=== PATIENT | male | born 1995 | race African-American/Black ===

== ENCOUNTER 2017-11-12 20:23 | Emergency (ER) | payer SELFPAY ==
[~2017-11-12] VITALS: Ht 180.3 cm; Wt 65.0 kg
[2017-11-12] MEDS ORDERED: PENICILLIN V POTASSIUM 500 MG TABLET PO ONE (21:30)
[2017-11-12] MEDS ORDERED: IBUPROFEN 600 MG TABLET PO ONE (21:30)
[2017-11-12] MEDS ORDERED: PERTUSS(ACELL),DIPH,TET VAC/PF 0.5 ML VIAL IM ONE (21:30)
[2017-11-12 21:45] VITALS: BP 118/75
== END 2017-11-12 22:20 | disposition home or self-care (01) ==
LOC: EMS 20:25
DX: S01.512A Laceration without foreign body of oral cavity, initial encounter (principal); Y04.0XXA Assault by unarmed brawl or fight, initial encounter
CPT/HCPCS: 90471; 90715; 99283